=== PATIENT | female | born 1980 | race Caucasian/White ===

== ENCOUNTER 2017-03-28 10:09 | Emergency (ER) | payer MEDICAID ==
[2017-03-28] MEDS: ALPRAZOLAM 0.25 MG TAB PO (12:25)
[2017-03-28 12:27] LABS: URINE PH (Dip) POC 5.5 (5.0-8.5)
[2017-03-28 12:27] LABS: URINE BLOOD (Dip) POC Negative (NEGATIVE); URINE GLUCOSE (Dip) POC Negative (NEGATIVE); URINE KETONES (Dip) POC 4+ (NEGATIVE); URINE LEUKOCYTE EST (Dip) POC Negative (NEGATIVE); URINE NITRITE (Dip) POC Negative (NEGATIVE); URINE TOTAL PROTEIN POC Negative (NEGATIVE)
== END 2017-03-28 14:35 | disposition home or self-care (01) ==
LOC: FTE 10:09
DX: G47.00 Insomnia, unspecified (principal); F41.9 Anxiety disorder, unspecified
CPT/HCPCS: 81003; 99283